=== PATIENT | male | born 1985 | race Two or more races ===

== ENCOUNTER 2020-05-27 17:50 | Emergency (ER) | payer BC, OTHER ==
[~2020-05-27] VITALS: Ht 177.8 cm; Wt 104.3 kg
[2020-05-27 17:54] VITALS: BP 129/67
[2020-05-27] MEDS ORDERED: IBUPROFEN 800 MG TAB PO ONE (19:15)
== END 2020-05-27 19:33 | disposition home or self-care (01) ==
LOC: ER 17:50
DX: S90.112A Contusion of left great toe without damage to nail, initial encounter (principal); W21.09XA Struck by other hit or thrown ball, initial encounter; Y93.69 Activity, other involving other sports and athletics played as a team or group; Y92.39 Other specified sports and athletic area as the place of occurrence of the external cause; Y99.8 Other external cause status
CPT/HCPCS: 73660; 99283; L3260

== ENCOUNTER 2020-07-03 19:43 | Emergency (ER) | payer BC ==
[~2020-07-03] VITALS: Ht 177.8 cm; Wt 104.3 kg
[2020-07-03 23:30] VITALS: BP 138/80
== END 2020-07-03 23:48 | disposition home or self-care (01) ==
LOC: ER 19:43
DX: S16.1XXA Strain of muscle, fascia and tendon at neck level, initial encounter (principal); X50.9XXA Other and unspecified overexertion or strenuous movements or postures, initial encounter; Y93.89 Activity, other specified; Y92.89 Other specified places as the place of occurrence of the external cause; Y99.8 Other external cause status
CPT/HCPCS: 72040; 73030; 93005